=== PATIENT | female | born 1940 | race Caucasian/White ===

== ENCOUNTER → 2016-08-06 | Day surgery (SDC) | payer OTHER ==
[~2016-08-06] VITALS: Ht 165.1 cm; Wt 68.0 kg
[~2016-08-06] MED LIST: ZETIA10 M1 PO
--- NOTE | 2016-08-06 16:18 | MAMMOGRAPHY REPORT ---
PROCEDURE: MM GUIDANCE FOR BREAST PREOPERATIVE NEEDLE LOCALIZATION, RIGHT MM BREAST, SPECIMEN RADIOGRAPHY CLINICAL INFORMATION: Family history of breast cancer in sister. History of left breast lumpectomy for cancer more than 10 years ago. Found to have a new suspicious solid mass in the right breast at 4 o'clock on ultrasound done on 07/03/2016. Subsequent ultrasound-guided biopsy done on 07/23/2016 showed DCIS within the right breast at 4 o'clock, 1 cm from the nipple. Preoperative needle localization is requested. COMPARISON: Prior studies done on 07/23/2016 and 07/03/2016. TECHNIQUE/FINDINGS: The details of the procedure, as well as the risks, benefits, and alternatives to the procedure were explained to the patient in detail and all of her questions were answered, after which, written informed consent was obtained. Prior to the procedure, the previous sonographic-guided tissue marker placement was localized using CC and ML views. Please note that there is no definite mammographic detectable mass identified at this time in the biopsy bed. A time-out was performed, the lesion intended for needle localization was targeted and the skin of the right breast was then prepped and draped in the usual sterile fashion. Using mammographic guidance, sterile technique and 2% 5 mL lidocaine without epinephrine for local anesthesia, a 5 cm Kopans needle- wire was placed at the site of the tissue marker at 4 o'clock within the right breast. The patient tolerated the procedure well. The images were appropriately labelled. A worksheet was appropriately filled out and was sent with the patient to the OR. Subsequently, following excision of the mass, specimen radiography was performed which revealed part of the wire (the remainder of the wire apparently was cut or was not included within the field of view), and the previously placed tissue marker. IMPRESSION: 1. Successful mammographic-guided needle localization of the right breast biopsy-proven DCIS at 4 o'clock, 1 cm from the nipple. 2. Final specimen radiograph confirming removal of the previously placed tissue marker and part of the localization wire. Results were called to Dr. Sethi in the operating room at the time of imaging. The histology report is pending.
--- NOTE | 2016-08-07 09:38 | Operative Report ---
Operative/Inv Procedure Report Surgery Date: 08/06/16 Name of Procedure: Right breast needle localization lumpectomy Pre-Operative Diagnosis: Right breast cancer Post-Operative Diagnosis: Same Estimated Blood Loss: scant Surgeon/Knowledge Management Advisor: SARAH BETH GIFOFRD,ZUHAIR TERRELL Anesthesia: local monitored anesthesi Operative/Procedure Note Note: Patient was positioned supine after successful induction of anesthesia her right breast and surrounding area was prepped and draped in the usual sterile fashion we reviewed the preoperative needle localization imaging with the wire entered medially and the lesion was superficial. We aimed a periareolar incision we infiltrated local anesthetic then made the incision which followed the ER, from about 12:00 to 5:00. This was deepened through the dermis and into the subcutaneous fat for less than a centimeter and then dissection was directed superficially towards the wire which was snipped and brought into the wound and with the aid of Allis clamps for retraction a cylinder of tissue was made with cautery around the trajectory of the wire being mindful to include the anterior superficial portion thicker. Medially the tissue was more dense as it tracked subareolar, once the lumpectomy was completed and it extended beyond the tip of the wire I took additional anterior margin separately and both were sent to the pathologist. In the meantime the area was irrigated aspirated checked for hemostasis and closed back up in layers using interrupted 3-0 Vicryl sutures subdermally followed by a running subcuticular 4-0 Biosyn suture for the skin itself followed by Mastisol Steri-Strips Telfa and Tegaderm. Of note using the Biovision in the room we did confirm that the clip was within the specimen. EBL minimal lap and sponge counts correct wound expectancy clean IV fluids crystalloid complications none patient tolerated the procedure well was extubated and returned to recovery room in satisfactory condition.
== END ==
LOC: STS 02:54 → CBW.IIU 07:00 → CBW.MAMMO 08:30
DX: D05.11 Intraductal carcinoma in situ of right breast (principal); Z85.3 Personal history of malignant neoplasm of breast; Z85.820 Personal history of malignant melanoma of skin; Z80.3 Family history of malignant neoplasm of breast; E78.00 Pure hypercholesterolemia, unspecified
CPT/HCPCS: J0131; J0690; J1100; J2001; J2250; J2405

== ENCOUNTER 2017-10-10 11:18 | Emergency (ER) | payer OTHER ==
--- NOTE | 2017-10-10 12:46 | CT SCAN REPORT ---
EXAMINATION: CT HEAD WITHOUT CONTRAST CT CERVICAL SPINE WITHOUT CONTRAST CLINICAL INFORMATION: Trauma COMPARISON: None TECHNIQUE: Contiguous axial imaging was performed from the skull base to vertex without intravenous administration of contrast. DLP: 934 mGy-cm FINDINGS: CT Brain: There is no evidence of acute intracranial hemorrhage, midline shift, mass effect, or extra-axial fluid collection. No evidence of hydrocephalus. Patchy periventricular and subcortical white matter hypoattenuation is seen, nonspecific, though most compatible with chronic microvascular ischemic change. The visualized paranasal sinuses and mastoid cells are clear. Soft tissue debris within the left external artery canal, likely reflects cerumen. Basal cisterns are patent. The calvarium is intact. CT Cervical spine: There is diffuse osteopenia. No evidence of acute fracture or traumatic dislocation. Cervical vertebral bodies are within normal limits for height. There is grade 1 anterolisthesis of C7 on T1. Multilevel degenerative changes of the cervical spine are seen, with loss of intervertebral disc height particularly at C6-C7. Multilevel facet degeneration is also seen, with fusion of the left C2-C3 facets. A few scattered bilateral cervical lymph nodes are seen, though none of which are enlarged by size criteria. Biapical pleural/parenchymal scarring is seen. IMPRESSION: CT Brain: No acute intracranial hemorrhage or mass effect. CT Cervical spine: No evidence of cervical spine fracture. Multilevel degenerative changes of the cervical spine.
--- NOTE | 2017-10-10 13:00 | ED HEAD/FACIAL INJ COMPLAINT ---
History of Present Illness General Chief Complaint: Facial or Head Injury Stated Complaint: FALL A 10 DAYS AGO PMD WANTS HEAD CT Source: patient Exam Limitations: no limitations Allergies Coded Allergies: adhesive (Intermediate, RASH 10/10/17) sulfamethoxazole (CHILDHOOD ALLERGY 10/10/17) Reconcile Medications Ezetimibe (Zetia) 10 MG TABLET 1 TAB PO DAILY CHOLESTEROL (Reported) Triage Note: PT TO TRIAGE AFTER HITTING THE BACK OF HER HEAD ON A CABNET WHEN SHE WAS PLAYING WITH HER GRANDCHILD. PT HAS HAD HEADACHES SINCE. DENIES N/V OR DIZZINESS. HER NECK HAD BEEN STIFF BUT NOW FEELS BETTER Triage Nurses Notes Reviewed? yes Onset: Abrupt Severity: mild, moderate Severity Numbers: 5 Location: occipital, parietal Method of Injury: fall Loss of Consciousness: no loss of consciousness Associated Symptoms: headaches LMP (ages 10-50): unknown : No Patient currently breastfeeds: No HPI: 77-year-old female presents for evaluation after fall. Patient reports 10 days ago she was sitting on an exercise ball when the ball rolled out from under her causing her to fall onto the right side. She proceeded the right parietal and occipital aspect of her head on a cabinet that was next to the ball. No loss of consciousness no other injuries. She reports that rolled his later she developed a pressure headache and neck stiffness. She does not take blood thinners. The headache has been persisting. She has been taking Tylenol with good effect. No changes in vision vomiting or focal weakness or any other concerns. (Rakesh Koch) Vital Signs & Intake/Output Vital Signs & Intake/Output ED Intake and Output 10/11 0000 10/10 1200 Intake Total 0 Output Total Balance 0 Intake, Oral 0 (Felipe GIFFORD,[facility]) Past History Travel History Traveled to [place] past 21 day No Medical History Any Pertinent Medical History? see below for history Neurological: NONE EENT: NONE Cardiovascular: NONE Respiratory: NONE Gastrointestinal: diverticulitis Hepatic: NONE Renal: NONE Musculoskeletal: NONE Psychiatric: NONE Endocrine: NONE Blood Disorders: NONE Cancer(s): melanoma, BREAST CA 2000 BREAST CA 2017 Pneumonia Vaccine: 09/07/03 Surgical History Surgical History: non-contributory Psychosocial History What is your primary language Frisian Tobacco Use: Never used ETOH Use: occasional use Illicit Drug Use: denies illicit drug use Family History Hx Contributory? No (Rakesh Koch) Review of Systems Review of Systems Constitutional: Reports: no symptoms. EENTM: Reports: no symptoms. Respiratory: Reports: no symptoms. Cardiovascular: Reports: no symptoms. GI: Reports: no symptoms. Genitourinary: Reports: no symptoms. Musculoskeletal: Reports: muscle pain, muscle stiffness, neck pain. Skin: Reports: no symptoms. Neurological/Psychological: Reports: see HPI, headache. Hematologic/Endocrine: Reports: no symptoms. Immunologic/Allergic: Reports: no symptoms. All Other Systems: Reviewed and Negative (Rakesh Koch) Physical Exam Physical Exam General Appearance: well developed/nourished, no apparent distress, alert, awake Head: atraumatic, normal appearance, no bruising swelling or abrasions no signs of trauma Eyes: Bilateral: normal appearance, PERRL, EOMI. Ears, Nose, Throat: normal pharynx, normal ENT inspection, hearing grossly normal Neck: normal inspection, supple, full range of motion, no midline tenderness Respiratory: normal breath sounds, chest non-tender, no respiratory distress, lungs clear Cardiovascular: regular rate/rhythm, normal peripheral pulses Gastrointestinal: soft, non-tender Back: normal inspection, normal range of motion, no vertebral tenderness Extremities: normal inspection, normal range of motion, no edema Psychiatric: awake, alert, oriented x 3 Cranial Nerves: normal hearing, normal speech, PERRL Coordination/Gait: normal finger to nose, normal gait Motor/Sensory: no motor/sensory deficits Skin: intact, normal color, warm/dry (Rakesh Koch) Progress Differential Diagnosis: corneal abrasion, facial fracture, ICH, orbit fracture, skull fracture Plan of Care: Patient is here for evaluation after a fall 10 days ago where she did hit her head. No signs of trauma to the head no loss of consciousness no blood thinners. Patient is neurologically intact. CT scan of the head was obtained and is negative. A CT scan of the cervical spine is negative for fracture. Patient was instructed to rest avoid excessive physical and mental activity. Continue Tylenol as needed for pain follow-up with a primary care doctor discussed return precautions patient agrees the plan case discussed with Dr. KUHN he agrees. Diagnostic Imaging: Viewed by Me: CT Scan. Discussed w/RAD: CT Scan. Radiology Impression: PATIENT: TACHO SAMANIEGO PRESENT AGE: 77 PATIENT ACCOUNT NO: [id number] : 38 LOCATION: [facility] ORDERING PHYSICIAN: Rakesh TERRELL SERVICE DATE: 10/10/17 EXAM TYPE: CAT - CT CERV SPINE WO IV CONTRAST; CT HEAD WO IV CONTRAST EXAMINATION: CT HEAD WITHOUT CONTRAST CT CERVICAL SPINE WITHOUT CONTRAST CLINICAL INFORMATION: Trauma COMPARISON: None TECHNIQUE: Contiguous axial imaging was performed from the skull base to vertex without intravenous administration of contrast. DLP: 934 mGy-cm FINDINGS: CT Brain: There is no evidence of acute intracranial hemorrhage , midline shift, mass effect, or extra-axial fluid collection. No evidence of hydrocephalus. Patchy periventricular and subcortical white matter hypoattenuation is seen, nonspecific, though most compatible with chronic microvascular ischemic change. The visualized paranasal sinuses and mastoid cells are clear. Soft tissue debris within the left external artery canal, likely reflects cerumen. Basal cisterns are patent. The calvarium is intact. CT Cervical spine: There is diffuse osteopenia. No evidence of acute fracture or traumatic dislocation. Cervical vertebral bodies are within normal limits for height. There is grade 1 anterolisthesis of C7 on T1. Multilevel degenerative changes of the cervical spine are seen, with loss of intervertebral disc height particularly at C6-C7. Multilevel facet degeneration is also seen, with fusion of the left C2-C3 facets. A few scattered bilateral cervical lymph nodes are seen, though none of which are enlarged by size criteria. Biapical pleural/ parenchymal scarring is seen. IMPRESSION: CT Brain: No acute intracranial hemorrhage or mass effect. CT Cervical spine: No evidence of cervical spine fracture. Multilevel degenerative changes of the cervical spine. DICTATED BY: Jaylen Altamirano MD DATE/TIME DICTATED:10/10/171233 SENIOR NUCLEAR MEDICINE TECHNOLOGIST:SANA DATE/TIME TRANSCRIBED:10/10/171233 CONFIDENTIAL, DO NOT COPY WITHOUT APPROPRIATE AUTHORIZATION. <Electronically signed in Other Vendor System> SIGNED BY: Jaylen Altamirano MD 10/10/17 1246 (Nader TERRELL,Rakesh) Departure Departure Disposition: HOME OR SELF CARE Condition: Stable Clinical Impression Primary Impression: Head injury Qualifiers: Encounter type: initial encounter Qualified Code: S09.90XA - Unspecified injury of head, initial encounter Referrals: David GIFFORD,Jamison Belcher (PCP/Family) Additional Instructions: Rest, avoid excessive physical and mental activity. Continue Tylenol 1000 mg every 6 hours as needed for pain. Follow-up with the primary care doctor for recheck in a few days. Monitor your symptoms return with any concerns. Departure Forms: Customer Survey General Discharge Information (Rakesh Koch) PA/VETERINARY MICROBIOLOGIST Co-Sign Statement Statement: ED Attending supervision documentation- [x] I saw and evaluated the patient. I have also reviewed all the pertinent lab results and diagnostic results. I agree with the findings and the plan of care as documented in the PA's/VETERINARY MICROBIOLOGIST's documentation. [] I have reviewed the ED Record and agree with the PA's/VETERINARY MICROBIOLOGIST's documentation. [] Additions or exceptions (if any) to the PAs/VETERINARY MICROBIOLOGIST's note and plan are summarized below: 77-year-old female comes in with a mild headache. She reports headache for the past 7-10 days. She hit her head 7-10 days ago. She rolled off an exercise ball. No numbness, weakness, vision changes reported. No neck pain reported. No other injuries reported. CT imaging negative. Patient appears comfortable and nontoxic. No fever, no meningismus, normal neurological exam, no history of aneurysms. No red flags for LP. Patient is safe to discharge home. (Felipe GIFFORD,[facility])
[2017-10-10 13:03] VITALS: BP 158/74
== END 2017-10-10 13:13 ==
LOC: ERH 11:18
DX: S09.90XA Unspecified injury of head, initial encounter (principal); R51 Headache; M54.2 Cervicalgia; W17.89XA Other fall from one level to another, initial encounter; Y93.89 Activity, other specified